=== PATIENT | female | born 1960 | race Caucasian/White ===

== ENCOUNTER → 2022-09-06 15:03 | Outpatient (CLI) | payer OTHER, SELFPAY ==
--- NOTE | 2022-09-06 | DI.MG.S_ITS ---
BILATERAL DIGITAL SCREENING MAMMOGRAM 3D/2D WITH CAD: 09/06/2022 CLINICAL: Routine screening. No prior exams were available for comparison. Both breasts are almost entirely fatty (category a/<25% glandular tissue). Current study was also evaluated with a Computer Aided Detection (CAD) system. No significant masses, calcifications, or other findings are seen in either breast. IMPRESSION: NEGATIVE There is no mammographic evidence of malignancy. A 1 year screening mammogram is recommended. Based on the Tyrer Cuzick model (a risk assessment model) the patient's lifetime risk is 3.7% and her 10 year risk is 1.5%. According to the ACR, ACS, and NCCN guidelines, an annual breast MRI exam along with mammogram is recommended if the patient's lifetime risk is 20% or greater. This exam was interpreted at Station ID: [id number]. NOTE: For mammograms, a report in lay terms will be sent to the patient. Approximately 15% of breast malignancies will not be visualized mammographically. In the management of a palpable breast mass, a negative mammogram must not discourage biopsy of a clinically suspicious lesion. Electronically Signed By: Franky Marroquin M.D. acr/kayy:09/06/2022 16:26:32 letter sent: Normal Exam ACR BI-RADS Category 1: Negative 3341F
== END ==
PROVIDERS: PCP Physician Assistant; Referring Provider Physician Assistant; Visit Provider Physician Assistant
DX: Z12.31 Encounter for screening mammogram for malignant neoplasm of breast (principal)
CPT/HCPCS: 77063; 77067

== ENCOUNTER 2022-10-22 06:53 | Day surgery (SDC) | payer OTHER, SELFPAY ==
--- NOTE | 2022-10-22 | PATH_ITS ---
[facility] Accession Number: [id number] No. of containers..03 Tissue . 01 Material submitted: . PART A: colon - TRANSVERSE COLON POLYP PART B: colon - DESCENDING COLON EROSION PART C: rectum - RECTAL POLYP . 01 Diagnosis: A. Transverse Colon, Polyp, Biopsy: Serrated lesion, favor sessile serrated adenoma. . B. Descending Colon, Erosion, Biopsy: Mildly active colitis with denuded surface epithelium. Please see comment. Negative for granulomas, dysplasia, and malignancy. . C. Rectum, Polyp, Biopsy: Hyperplastic colonic mucosa with mild active inflammation and denuded surface epithelium. Please see comment. Negative for granulomas, dysplasia, and malignancy. [facility] 10/24/2022 1538 Local . 01 Comment: B-C. The biopsies from the descending colon and rectum show mild neutrophilic cryptitis without features of chronic colitis, including no branched crypt architecture or lymphoplasmacytosis in the lamina propria. No obvious viral cytopathic effects or parasitic organisms are identified. The differential diagnosis includes infection, medication-related mucosal injury, diverticular disease-associated colitis, and idiopathic inflammatory bowel disease. Acute ischemia can not be entirely excluded. . 01 Electronically signed: . Chioma Avila MD, Pathologist NPI- [id number] . 01 Gross description: . Part A: TRANSVERSE COLON POLYP: Received in formalin is 1 fragment(s) of aguillon, soft tissue measuring 0.3 x 0.3 x 0.2 cm submitted entirely in 1 cassette(s) Part B: DESCENDING COLON EROSION: Received in formalin is 1 fragment(s) of aguillon, soft tissue measuring 0.2 x 0.2 x 0.2 cm submitted entirely in 1 cassette(s) Part C: RECTAL POLYP: Received in formalin is 1 fragment(s) of aguillon, soft tissue measuring 0.2 x 0.2 x 0.2 cm submitted entirely in 1 cassette(s) /FARHEEN 10/23/2022 2237 Local . 01 Pathologist provided ICD-10: D12.3 . 01 CPT . 675750, 007807, 363287 Specimen Comment: A courtesy copy of this report has been sent to [phone] Performed at: 01 [facility] [address] [place] [address], [place], [place] [id number] MD Puneet Luna MD Phone: [phone]
[2022-10-22 07:20] VITALS: BMI 30.1
[2022-10-22 07:35] VITALS: BP 154/93; PULSE 72; RESP 17; TEMP 36.5; O2SAT 97
[2022-10-22] MEDS: LACTATED RINGERS 1,000 ML 100 ML IV (07:37)
--- NOTE | 2022-10-22 07:58 | PM.HP.1 ---
History of Present Illness History of Present Illness Date Patient Seen: 10/22/22 Time Patient Seen: 07:58 Chief complaint: Dx Colonoscopy Narrative: Personal history of colon polyps PFSH Medical History Colon polyps History of ETOH abuse Hypertension Hypothyroid Surgical History Hx laparoscopic cholecystectomy Hx of tonsillectomy Social History household members: spouse Smoking Status: Former smoker alcohol intake: former Meds Home Medications and Allergies Home Medications Medication Instructions Recorded Confirmed Type ascorbic acid (vitamin C) 1,000 mg 500 mg PO DAILY 10/22/22 10/22/22 History tablet (Vitamin C) cholecalciferol (vitamin D3) 25 25 mcg PO DAILY 10/22/22 10/22/22 History mcg (1,000 unit) chewable tablet (Vitamin D3) hydrochlorothiazide 25 mg tablet 12.5 mg PO DAILY 10/22/22 10/22/22 History levothyroxine 125 mcg tablet 125 mcg PO DAILY 10/22/22 10/22/22 History losartan 50 mg tablet 50 mg PO DAILY 10/22/22 10/22/22 History vitamin B complex 1 tab PO DAILY 10/22/22 10/22/22 History Allergies Allergy/AdvReac Type Severity Reaction Status Date / Time amoxicillin Allergy Severe Hives Verified 10/22/22 07:14 lisinopril AdvReac Intermediate Cough Verified 10/22/22 07:14 Review of Systems Review of Systems ROS: Yes All systems reviewed with the patient and are negative except as otherwise documented Exam Vital Signs (past 8 hours): - 10/22/22 07:35 Temperature 97.7 F Pulse Rate 72 Respiratory Rate 17 Blood Pressure 154/93 H Pulse Oximetry 97 Oxygen Delivery Method Room Air Oxygen Delivery Method Room Air Const General: cooperative HENMT Head: normal to inspection Eyes General: appearance normal, both eyes and all related structures Neck Neck: normal visual inspection Chest Chest: normal inspection of the chest Resp Effort & Inspection: normal respiratory effort Cardio Rate: regular rate GI Inspection: normal to inspection Skin General: no rashes or lesions noted Neuro General: patient alert and patient awake Extrem General: normal to inspection and no pedal edema Psych Appearance: grossly normal Assessment & Plan Assessment & Plan narrative: 62-year-old female with a personal history of colon polyps. Colonoscopy is pursued today.
--- NOTE | 2022-10-22 07:59 | PM.PREOP ---
Pre-operative Note Interval Note History & Physical reviewed/Exam performed by Physician: Yes Changes to H&P: No ASA Class (for procedural sedation): II
--- NOTE | 2022-10-22 08:29 | PM.OP.COLON ---
Operative Date/Time/Diagnoses Date of procedure: 10/22/22 Time of procedure: 08:29 Pre-op diagnosis: Personal history of colon polyps Post-op diagnosis: same Procedure & Clinicians Study performed: Colonoscopy with cold forceps polypectomy and biopsies Same procedure as scheduled: Yes Indications: Personal history of colon polyps Surgeon: Que Duran Procedure Notes SCOAP/Timeout: Done Procedure in detail: After the risks and benefits were explained, written and verbal informed consent was obtained. The patient was brought into the procedure room and placed into the left lateral decubitus position. Please see anesthesia notes for sedation details. Digital rectal examination was accomplished. The scope was introduced into the patient and advanced under direct visualization to the cecum as identified by the appendiceal orifice and ileocecal valve. The scope was slowly withdrawn to carefully examine the mucosa for any defects or lesions. Comprehensive imaging was accomplished throughout the rectum including the dentate line. The colon was decompressed, the scope was then removed from the patient who tolerated the procedure well. Pediatric colonoscope Bowel prep adequate Scope withdrawal time: 11 minutes Sedation minutes: 22 Complications: none Impression: There were scattered diverticula in the left colon. Rectosigmoid was a little tortuous. There were some scattered erosions noted in the rectum and left colon. A biopsy was taken from an eroded area in the descending colon and in the rectum and submitted separately. There was a subtle diminutive polyp in the transverse colon removed with cold forceps. The terminal ileum was interrogated and appeared visually normal. The patient had evidence of grade 1 internal hemorrhoids. Endoscopic diagnosis 1. Diverticulosis 2. Diminutive colon polyp 3. Scattered left colon [id number] prep artifact Post-procedure Plan for aftercare: 1. Await histopathology 2. Timing of repeat colonoscopy will be contingent on histopathology results. Disposition: PACU
[2022-10-22 08:30] VITALS: BP 92/60; PULSE 68; RESP 25; TEMP 36.3; O2SAT 99
[2022-10-22 08:35] VITALS: BP 115/92; PULSE 67; RESP 18; O2SAT 100
[2022-10-22 08:39] VITALS: BP 118/74; PULSE 62; RESP 14; O2SAT 99
[2022-10-22 08:44] VITALS: BP 134/74; PULSE 58; RESP 23; TEMP 36.4; O2SAT 100
== END 2022-10-22 09:04 | disposition home or self-care (01) ==
PROVIDERS: PCP Physician Assistant; Referring Provider Internal Medicine Gastroenterology; Visit Provider Internal Medicine Gastroenterology
PROC: 0DJD8ZZ Inspection of Lower Intestinal Tract, Via Natural or Artificial Opening Endoscopic (ICD-10-PCS; CPT 45378; principal; 2022-10-22 08:00)
DX: Z12.11 Encounter for screening for malignant neoplasm of colon (principal); Z86.010 Personal history of colon polyps; K57.30 Diverticulosis of large intestine without perforation or abscess without bleeding; K64.0 First degree hemorrhoids; D12.3 Benign neoplasm of transverse colon; K62.1 Rectal polyp; K52.9 Noninfective gastroenteritis and colitis, unspecified
CPT/HCPCS: 45380; J2704

== ENCOUNTER → 2023-10-02 16:47 | Outpatient (CLI) | payer OTHER, SELFPAY ==
--- NOTE | 2023-10-02 16:47 | DI.MG.S_ITS ---
BILATERAL DIGITAL SCREENING MAMMOGRAM 3D/2D WITH CAD: 10/02/2023 CLINICAL: Routine screening. Comparison is made to exam dated: 09/06/2022 mammogram - [facility]. Both breasts are heterogeneously dense, which may obscure small masses (category c / 51-75% glandular tissue). Current study was also evaluated with a Computer Aided Detection (CAD) system. There is an asymmetry in the left breast middle depth central to the nipple seen on the mediolateral oblique view only. No other significant masses, calcifications, or other findings are seen in either breast. IMPRESSION: INCOMPLETE: NEEDS ADDITIONAL IMAGING EVALUATION The asymmetry in the left breast is indeterminate. Additional views with possible ultrasound are recommended. Based on the Tyrer Cuzick model (a risk assessment model) the patient's lifetime risk is 8.1% and her 10 year risk is 3.5%. According to the ACR, ACS, and NCCN guidelines, an annual breast MRI exam along with mammogram is recommended if the patient's lifetime risk is 20% or greater. This exam was interpreted at Station ID: [id number]. NOTE: For mammograms, a report in lay terms will be sent to the patient. Approximately 15% of breast malignancies will not be visualized mammographically. In the management of a palpable breast mass, a negative mammogram must not discourage biopsy of a clinically suspicious lesion. Electronically Signed By: Cy watson/kayy:10/03/2023 09:02:12 letter sent: Additional Imaging Needed ACR BI-RADS Category 0: Incomplete 3340F
== END ==
PROVIDERS: PCP Physician Assistant; Referring Provider Physician Assistant; Visit Provider Physician Assistant
DX: Z12.31 Encounter for screening mammogram for malignant neoplasm of breast (principal); R92.333 Mammographic heterogeneous density, bilateral breasts
CPT/HCPCS: 77063; 77067

== ENCOUNTER → 2023-10-25 10:03 | Outpatient (CLI) | payer OTHER, SELFPAY ==
--- NOTE | 2023-10-25 10:04 | DI.MG.S_ITS ---
UNILATERAL LEFT DIGITAL DIAGNOSTIC MAMMOGRAM 3D/2D WITH ADDITIONAL VIEWS: 10/25/2023 CLINICAL: Additional evaluation requested from prior study. Comparison is made to exams dated: 10/02/2023 mammogram and 09/06/2022 mammogram - [facility]. The left breast is heterogeneously dense, which may obscure small masses (category c / 51-75% glandular tissue). There is an asymmetry in the left breast middle depth central to the nipple seen on the mediolateral oblique view only. This is less prominent. No other significant masses or calcifications are seen in the breast. IMPRESSION: INCOMPLETE: NEEDS ADDITIONAL IMAGING EVALUATION The asymmetry in the left breast is indeterminate. A targeted ultrasound is recommended and will immediately follow. Based on the Tyrer Cuzick model (a risk assessment model) the patient's lifetime risk is 8.1% and her 10 year risk is 3.5%. According to the ACR, ACS, and NCCN guidelines, an annual breast MRI exam along with mammogram is recommended if the patient's lifetime risk is 20% or greater. This exam was interpreted at Station ID: [id number]. NOTE: For mammograms, a report in lay terms will be sent to the patient. Approximately 15% of breast malignancies will not be visualized mammographically. In the management of a palpable breast mass, a negative mammogram must not discourage biopsy of a clinically suspicious lesion. Electronically Signed By: Keanu Osorio M.D. [facility] [place]/:10/25/2023 12:59:21 ACR BI-RADS Category 0: Incomplete 3340F
--- NOTE | 2023-10-25 10:04 | DI.US.S_ITS ---
LIMITED ULTRASOUND OF LEFT BREAST: 10/25/2023 CLINICAL: Patient returns today to evaluate a focal asymmetry in the left breast. Comparison is made to exams dated: 10/25/2023 mammogram, 10/02/2023 mammogram, and 09/06/2022 mammogram - [facility]. Color flow and real-time ultrasound of the left breast 2-3 o'clock region were performed. Benitez scale images of the real-time examination were reviewed. There is a benign 0.7 cm x 0.5 cm x 0.2 cm cyst with a septated internal wall in the left breast at 2 o'clock middle depth 7 cm from the nipple. This cyst is anechoic. This correlates with mammography findings. Color flow imaging demonstrates that there is no vascularity present. IMPRESSION: BENIGN There is no sonographic evidence of malignancy. The 0.7 cm cyst in the left breast is benign. A 1 year screening mammogram is recommended. Exam findings were conveyed to the patient. This exam was interpreted at Station ID: [id number]. Electronically Signed By: Keanu Osorio M.D. slc/:10/25/2023 13:05:19 letter sent: Normal Exam Ultrasound BI-RADS: 2 Benign
== END ==
PROVIDERS: PCP Physician Assistant; Referring Provider Physician Assistant; Visit Provider Physician Assistant
DX: R92.8 Other abnormal and inconclusive findings on diagnostic imaging of breast (principal); N60.02 Solitary cyst of left breast; R92.332 Mammographic heterogeneous density, left breast
CPT/HCPCS: 76642; 77065; G0279